=== PATIENT | female | born 1945 | race Caucasian/White ===

== ENCOUNTER 2021-11-03 13:30 | Outpatient (RCR) | payer MEDICARE, BC, SELFPAY | END 2022-11-03 23:59 | disposition home or self-care (01) | PROVIDERS: PCP Family Medicine | DX: I63.9 Cerebral infarction, unspecified (principal); Z51.89 Encounter for other specified aftercare | CPT/HCPCS: 97535 ==

== ENCOUNTER 2022-10-03 09:39 | Outpatient (CLI) | payer MEDICARE, BC, SELFPAY | END 2022-10-03 09:40 | disposition home or self-care (01) | PROVIDERS: PCP Family Medicine; Visit Provider Orthopaedic Surgery | DX: Z01.818 Encounter for other preprocedural examination (principal) | CPT/HCPCS: 36415; 86850; 86900; 86901 ==

== ENCOUNTER 2022-10-04 06:54 | Day surgery (SDC) | payer MEDICARE, BC, SELFPAY ==
[2022-10-04] VITALS (21 sets, daily range): BP systolic 103–160; BP diastolic 65–98; PULSE 56–84; RESP 14–18; TEMP 35.6–36.6; O2SAT 94–100; BMI 30.2
[2022-10-04] MEDS: LACTATED RINGERS 1000 ML 1,000 ML 100 ML IV ×2 (06:55→11:05)
[2022-10-04] MEDS: OXYCODONE (CR) 10 MG TAB.ER.12H PO (06:56)
[2022-10-04] MEDS: SODIUM CHLORIDE 0.9 % (FLUSH) 10 ML SYRINGE IVF (07:38)
--- NOTE | 2022-10-04 08:49 | SUR.PREOP ---
TIME?OUT:?0908 PT/RN/MDA?VERIFICATION?OF?SURGICAL?SITE Right Hip,?PROCEDURE,?AND?CONSENT OBTAINED?PRIOR?TO?INVASIVE?PROCEDURE Nerve Block.
--- NOTE | 2022-10-04 09:00 | CRLHL7_ITS ---
For Patients: As a result of the Cures Act, medical imaging exams and procedure reports are released immediately into your electronic medical record. You may view this report before your referring provider. If you have questions, please contact your health care provider. INDICATION: Right hip arthroplasty. TECHNIQUE: Fluoroscopically guided intraoperative right hip arthroplasty. Two portable intraoperative images obtained. FINDINGS: Right hip arthroplasty. Adequate alignment. 71 seconds fluoroscopy time utilized. IMPRESSION: 71 seconds fluoroscopy time utilized intraoperatively. Dictated by Enrique Lorenzo MD @ 10/04/2022 4:50:51 PM (Electronically Signed)
[2022-10-04] MEDS: fentaNYL 100 MCG/2 ML inj IVP (09:10)
[2022-10-04] MEDS: MIDAZOLAM HCL 1 MG/ML inj IVP (09:10)
[2022-10-04] MEDS: TRANEXAMIC ACID 100 MG/ML INJ 1000 MG IV (09:35)
[2022-10-04] MEDS: CEFAZOLIN 2 GM INJ IVP (09:40)
--- NOTE | 2022-10-04 10:55 | P.NB_ITS ---
Nerve Block Nerve Block Time Seen by Provider: 09:00 Date Seen: 10/04/22 Type of block requested by surgeon for post-operative analgesia: SEBAS/LFCN Side: right Time out performed: Yes Verification of patient name: Yes Verification of date of : Yes Site marking: site marked Name of person performing procedure: [place] Continuous monitoring Was continuous monitoring of O2 sat, B/P, parking lot attendant and cashier, recorded every 15 minutes?: Yes Procedure Checklist: sterile prep, needles and gloves Ultrasound guided. Images saved: Yes Medications given in 5ml increments after negative aspiration: Marcaine %: 0.5 mL: 30 Needle gauge: 20 Decadron (mg): 10 Precedex (mcg): 20 Patient tolerated procedure well: Yes Block Charges Block Charge (with Pro Fee): Other Periph Nerve Block Use of Ultrasound Machine for Block: Yes- US Guidance/pain block
--- NOTE | 2022-10-04 11:00 | CRLHL7_ITS ---
For Patients: As a result of the Cures Act, medical imaging exams and procedure reports are released immediately into your electronic medical record. You may view this report before your referring provider. If you have questions, please contact your health care provider. INDICATION: Follow up right hip arthroplasty. TECHNIQUE: AP pelvis and single cross table lateral view of the right hip performed portably and postoperatively. FINDINGS: Right hip arthroplasty. The components are adequately aligned and well seated. Air within the soft tissues related to the surgery. Degenerative arthritis of the left hip. IMPRESSION: Right total hip arthroplasty. The components are adequately aligned and well seated. Dictated by Enrique Lorenzo MD @ 10/04/2022 4:49:25 PM (Electronically Signed)
--- NOTE | 2022-10-04 11:02 | PM.ORPRC ---
Procedure Note Date of procedure: 10/04/22 Procedure: PREOPERATIVE DIAGNOSIS: Right hip osteoarthritis POSTOPERATIVE DIAGNOSIS: Right hip osteoarthritis NAME OF OPERATION: Right total hip arthroplasty SURGEON: Nayan Sidhu MD DIRECTOR VOICE: Ambika Floyd PA-C, MATEO Phillip IMPLANTS: 1. [employer] [place] # 54 sector ingrowth cup 2. 36 x 54 +4 neutral polyethylene 3. Actis #4 standard collared ingrowth stem 4. 36 + 8.5 ceramic femoral head ANESTHESIA: General ESTIMATED BLOOD LOSS: 500 cc COMPLICATIONS: None SPECIMENS: None DRAINS: None PREOPERATIVE ANTIBIOTICS: Ancef 2 grams INDICATIONS: The patient is a 77-year-old with a longstanding history of severe, unrelenting right hip pain secondary to end-stage right hip osteoarthritis. Despite appropriate nonoperative management, including activity modification, use of an assist device, anti-inflammatories, [id number] pain medication, physical therapy and injections, they continue to have pain and disability. Operative intervention was offered. The risks, benefits and expected outcomes were discussed in detail. These included but were not limited to: Infection, bleeding, injury to blood vessel or nerve, venous thromboembolism. All questions were answered to their satisfaction. Use of an college sports assistant was necessary throughout the case for patient positioning and safety, soft tissue retraction and closure. PROCEDURE: The patient was placed supine on the [place] table. General anesthesia was administered. The college sports assistant made sure the patient was properly positioned. The right hip was prepped and draped in the usual sterile fashion. The image intensifier was brought in for a perfect AP pelvis and a perfect double tear drop AP view of each hip which were used for intraoperative templating with our fluoroscopic guide. An oblique incision was made 3 cm distal and 3 cm lateral to the anterior superior iliac spine. The college sports assistant retracted the soft tissues to protect them. Subcutaneous dissection was taken with electrocautery to the superficial fascia. The fascia was divided in line with the incision. Blunt dissection was carried medially to the tensor fascia gladis and sartorius interval. Deep dissection was carried with electrocautery. The circumflex vessels were cauterized and divided. The capsule was exposed and then divided in a T-fashion, tagged with #1 Ethibond sutures. Retractors were placed in the joint, held by the college sports assistant. The corkscrew was placed in the femoral head. The neck cut was made in the subcapital region. We made a second neck cut more distal. The napkin ring of bone was removed. The femoral head was removed intact. Acetabular retractors were placed, held by the college sports assistant. The labrum was sharply debrided. The capsule was released. The 43 mm reamer was used to the true medial wall. We then enlarged in 2 mm increments using the image intensifier for our reamer placement. We impacted the cup which had excellent purchase. We placed the hole eliminator and the polyethylene. Attention was then turned to the proximal femur. The limb was placed in 140 degrees of external rotation, maximum extension and adduction. A significant amount of time was spent releasing the capsule to allow us to deliver the femur into the wound and complete the femoral side safely. Retractors were held by the college sports assistant throughout the femoral preparation. The coin box inspector and canal finder were used. Broaches were used to a stable size. The calcar reamer was used. Trial components were placed. The hip was reduced and was found to be stable with appropriate soft tissue tension. Length and offset had been nicely restored using the image intensifier and our fluoroscopic guide. Trial components were removed. The stem was impacted. We placed the femoral head. Again, the hip was reduced and was found to be stable with appropriate soft tissue tension. Length and offset had been nicely restored. The college sports assistant did a three minute dilute Betadine solution soak. The college sports assistant irrigated the wound with 3 liters of normal saline via pulse lavage. The college sports assistant repaired the anterior capsule with a #1 Vicryl and our previously placed Ethibond sutures. The college sports assistant closed the fascia over the tensor fascia gladis with a #1 PDO Stratafix, subcutaneous tissues with 2-0 Vicryl, skin with a running 3-0 Stratafix and glue. A dry dressing was applied by the college sports assistant. Sponge and needle counts were correct x 2. The patient tolerated the procedure well; there were no apparent complications. They were awakened and extubated in the operating room, sent to the Post-Anesthesia Care Unit in satisfactory condition. PLAN: 1. The patient will be mobilized with physical therapy, weight-bearing as tolerates 2. The patient's usual dose of Plavix can be restarted tomorrow for DVT prophylaxis 3. The patient will be discharged once medically appropriate
--- NOTE | 2022-10-04 11:59 | W.ANESCHARGE ---
Anesthesia Charges Start Date/Time Anesthesia Start Date: 10/04/22 Anesthesia Start Time: 09:24 Stop Date/Time Anesthesia Stop Date: 10/04/22 Anesthesia Stop Time: 11:56
[2022-10-04] MEDS: OXYCODONE 5 MG TABLET PO ×4 (13:56→21:36)
[2022-10-04] MEDS: CEFAZOLIN 2 GM in 0.9 % SODIUM CHLORIDE Mini-bag 100 ML IVPB ×2 (14:21→21:36)
[2022-10-04] MEDS: LACTATED RINGERS 1000 ML 1,000 ML 75 ML IV (15:57)
--- NOTE | 2022-10-04 16:42 | PC.NURSE ---
Pt arrived in her hospital bed s/p Right total hip anterior approach with Dr. Sidhu from PACU to room 249 at 1234pm. Initial assessment from PACU completed, pt noted to have a heart murmur, friend Jasmine is present at bedside performing healing touch on pt who rates her hip pain 2-3 out of 10. Pt is smiling, cooperative with cares, I'm relieved it is all over. Active ice in place. Bilateral knee high teds and foot plexipulses. Knee lock and bed alarm engaged. Pt declined offer of lunch tray. Incontinent of urine in her bed. Pt to recliner with Coty in PT, while linens changed. Pt took 5 mg PO oxycodone for post op pain from Connie FERNÁNDEZ. First dose of IV Ancef infusing. Report to Vanessa FERNÁNDEZ for evening shift.
[2022-10-04] MEDS: SENNOSIDES 1 TAB TABLET 2 TAB PO (21:36)
--- NOTE | 2022-10-04 22:37 | PM.IMCN1 ---
Date of Consult Patient: Roberta Patient Consult date: 10/04/22 Requesting Physician: Orthopedics Primary Care Provider: Opal Estes MD Consult Narrative Reason for consult: Postop support hypertrophic cardiomyopathy, HTN, HLD, h/o CVA, asthma Narrative: Joan Wren is a 77 year old woman with longstanding right Krishnamurthy arthrosis who underwent an elective right total hip arthroplasty today. Multiple other modalities attempted to treat this without success. Surgery undertaken successfully without any apparent immediate complications. Estimated blood loss 500 mL. Review of Systems Status of ROS: Reports: 10 or more systems reviewed and unremarkable except as noted in History and below Narrative: Status post bilateral total knee arthroplasties, 1 in 2001 in the other in 2005. One of these was associated with a deep venous thrombosis. Known hypertrophic cardiomyopathy. Follows with the [place] [facility] for this. Most recent echo reportedly demonstrated severely increased left ventricular wall thickness, EF 70 75%. Participates in physical thigh therapy exercises without difficulties. Able to walk 1-2 city blocks without having to stop and rest. Able to climb 1-2 flights of stairs ?carefully. ? Denies chest heaviness, pressure, tightness, or pain. Denies paroxysmal nocturnal dyspnea orthopnea. Rarely uses rescue albuterol inhaler. Maybe once a month at most. No recent fevers, rigors, diaphoresis. No recent physical illnesses. No weight gain or weight loss. No syncope or near syncope. Denies nausea or vomiting. Denies palpitations or fluttering. No recent trauma, injury, or travel. [facility] Medical History Aspirin-induced asthma ?J45.998 - Other asthma (ICD-10) ?T39.015A - Adverse effect of aspirin, initial encounter (ICD-10) Benign paroxysmal positional vertigo ?H81.10 - Benign paroxysmal vertigo, unspecified ear (ICD-10) Diaphragmatic hernia without obstruction and without gangrene ?K44.9 - Diaphragmatic hernia without obstruction or gangrene (ICD-10) Left ventricular outflow tract obstruction ?Q24.8 - Other specified congenital malformations of heart (ICD-10) CVA (cerebrovascular accident) ?I63.9 - Cerebral infarction, unspecified (ICD-10) Hypertrophic cardiomyopathy ?I42.2 - Other hypertrophic cardiomyopathy (ICD-10) long term care phlebotomist (current) use of anticoagulants ?Z79.01 - long term care phlebotomist (current) use of anticoagulants (ICD-10) Phlebitis ?I80.9 - Phlebitis and thrombophlebitis of unspecified site (ICD-10) 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 mesenteritis (ICD-10) Asthma, mild persistent ?J45.30 - Mild persistent asthma, uncomplicated (ICD-10) Mild pulmonary hypertension (07/10/17) ?I27.20 - Pulmonary hypertension, unspecified (ICD-10) Hyperlipidemia (10/27/09) ?E78.5 - Hyperlipidemia, unspecified (ICD-10) DVT (deep venous thrombosis) ?I82.409 - Acute embolism and thrombosis of unspecified deep veins of unspecified lower extremity (ICD-10) Surgical History Status post vaginal hysterectomy (03/27/12) ?Z90.710 - Acquired absence of both cervix and uterus (ICD-10) H/O vein stripping ?Z98.890 - Other specified postprocedural states (ICD-10) Status post total right knee replacement (03/20/02) ?Z96.651 - Presence of right artificial knee joint (ICD-10) History of carpal tunnel surgery of right wrist (10/19/05) ?Z98.890 - Other specified postprocedural states (ICD-10) Status post total left knee replacement using cement (08/23/11) ?Z96.652 - Presence of left artificial knee joint (ICD-10) History of carpal tunnel surgery of left wrist (04/29/21) ?Z98.890 - Other specified postprocedural states (ICD-10) Social History Narrative: -Adria What is your current living situation: I presently have a place to live Problems where you live: no known problems Problems where you live details: none In the past 12 months, utilities in danger of being shut off: no In the past 12 mos, have been you worried that your food would run out before you had money to buy more?: never true In the past 12 mos, the food you bought just didn't last and you didn't have money to buy more?: never true Smoking Status: Never smoker Do you use any of these nicotine containing products: None Second hand tobacco smoke exposure: No How often do you have a drink containing alcohol: never AUDIT-C Alcohol total score: 0 Non-prescribed substance use: denies use Caffeine: Yes (coffee 3 cups/day. once and a while a cup of tea) Are you now , , , , never or living with a partner: Social isolation score (0-1 are the most socially isolated patients): 1 How often does anyone, including family, friends and others, physically hurt you: How often does anyone, including family, friends and others, insult or talk down to you: How often does anyone, including family, friends and others, threaten you with harm: How often does anyone, including family, friends and others, scream or curse at you: Are you using contraception or practicing any form of control: No service: No Meds Home Medications and Allergies Home Medications Medication Instructions Recorded Confirmed Type clopidogrel 75 mg tablet 75 mg PO DAILY 09/14/22 10/04/22 History lisinopril 2.5 mg tablet 2.5 mg PO DAILY 09/14/22 10/04/22 History rosuvastatin 20 mg tablet 20 mg PO QPM 09/14/22 10/04/22 History Allergies Allergy/AdvReac Type Severity Reaction Status Date / Time aspirin Allergy Severe asthma Verified 10/04/22 07:24 attack azithromycin Allergy Severe GI upset Verified 10/04/22 07:24 acetaminophen Allergy Mild very upset Verified 10/04/22 07:24 stomach ketorolac Allergy Mild possible Verified 10/04/22 07:24 cross allergy latex Allergy Mild Rash Verified 10/04/22 07:24 colchicine Allergy Unknown upset Verified 10/04/22 07:24 stomach hydroxyzine Allergy Unknown Verified 10/04/22 07:24 indomethacin Allergy Unknown stomach Verified 10/04/22 07:24 upset Penicillins AdvReac Intermediate asthma Verified 10/04/22 07:24 flare Exam Narrative: Exam Narrative: Appears comfortable and in no acute distress. Vision and hearing are grossly normal. Alert, oriented to self, place, time, situation. Friendly, cooperative, articulate. Mood and affect are congruent. No JVD or hepatojugular reflux. No carotid bruits. Lungs are clear to auscultation without wheezing, rhonchi, or rales. Heart tones with regular rhythm, normal S1-S2. Grade 2/6 systolic murmur, longstanding. Abdomen with active bowel sounds, soft, nontender. Skin is dry and intact. I do not take the dressing off surgical incision sites. Const: Vital Signs, click to edit/add: Vital Signs - 24 hr 10/04/22 07:31 10/04/22 09:00 10/04/22 09:10 Temperature 97.9 F 97.9 F Pulse Rate 63 70 65 Pulse Rate [Right Pulse Oximeter] Respiratory Rate 16 16 16 Blood Pressure 148/81 H 152/80 H 148/70 H Blood Pressure [Le ft Arm] Pulse Oximetry 95 100 100 Oxygen Delivery Me thod Room Air Nasal Cannula Nasal Cannula Oxygen Flow Rate 2 2 10/04/22 09:15 10/04/22 11:53 10/04/22 12:00 Temperature 97.0 F L Pulse Rate 63 74 66 Pulse Rate [Right Pulse Oximeter] Respiratory Rate 16 14 14 Blood Pressure 132/83 160/76 H 152/83 H Blood Pressure [Le ft Arm] Pulse Oximetry 100 94 95 Oxygen Delivery Me thod Nasal Cannula Nasal Cannula Aerosol Mask Oxygen Flow Rate 2 8 10/04/22 12:06 10/04/22 12:15 10/04/22 12:30 Temperature 97.4 F L 97.8 F Pulse Rate 84 75 78 Pulse Rate [Right Pulse Oximeter] Respiratory Rate 14 16 16 Blood Pressure 126/98 H 153/85 H 159/79 H Blood Pressure [Le ft Arm] Pulse Oximetry 99 99 99 Oxygen Delivery Me thod Aerosol Mask Nasal Cannula Nasal Cannula Oxygen Flow Rate 8 2 2 10/04/22 12:36 10/04/22 12:45 10/04/22 13:00 Temperature 96.1 F L 96.1 F L Pulse Rate 62 Pulse Rate [Right Pulse Oximeter] 60 56 L Respiratory Rate 16 16 16 Blood Pressure Blood Pressure [Le ft Arm] 111/67 117/72 141/80 H Pulse Oximetry 97 100 Oxygen Delivery Me thod Room Air Room Air Room Air Oxygen Flow Rate 10/04/22 13:15 10/04/22 13:30 10/04/22 14:00 Temperature Pulse Rate Pulse Rate [Right Pulse Oximeter] 59 L 61 68 Respiratory Rate 16 16 16 Blood Pressure Blood Pressure [Le ft Arm] 143/69 H 140/75 H 108/83 Pulse Oximetry 95 99 Oxygen Delivery Me thod Room Air Room Air Room Air Oxygen Flow Rate 10/04/22 14:30 10/04/22 15:00 10/04/22 16:00 Temperature 96.8 F L 97.3 F L 97.1 F L Pulse Rate Pulse Rate [Right Pulse Oximeter] 69 69 68 Respiratory Rate 16 16 16 Blood Pressure Blood Pressure [Le ft Arm] 118/86 110/73 151/89 H Pulse Oximetry 94 94 94 Oxygen Delivery Me thod Room Air Room Air Room Air Oxygen Flow Rate 10/04/22 17:00 10/04/22 18:00 Temperature 97.1 F L Pulse Rate Pulse Rate [Right Pulse Oximeter] 68 68 Respiratory Rate 16 16 Blood Pressure Blood Pressure [Le ft Arm] 129/70 118/89 Pulse Oximetry 94 94 Oxygen Delivery Me thod Room Air Room Air Oxygen Flow Rate 2 Documenting provider has reviewed patient's vital signs: yes Assessment and Plan Assessment and plan (1) Osteoarthritis of right hip: Status: Acute (2) Status post right hip replacement: Status: Acute (3) Hypertrophic cardiomyopathy: Status: Acute (4) Nonrheumatic tricuspid valve regurgitation: Status: Acute (5) Left ventricular hypertrophy: Status: Acute (6) Left ventricular outflow tract obstruction: Status: Acute (7) Mild pulmonary hypertension: Status: Acute (8) Hyperlipidemia: Status: Acute (9) CVA (cerebrovascular accident): Problem comment: 08/2021 Rt occipital Status: Acute (10) DVT (deep venous thrombosis): Problem comment: Occurred in postoperative setting status post total knee arthroplasty in the past. Status: Acute (11) Aspirin-induced asthma: Status: Acute Plan 1. Reviewed impression with patient. 2. Agree with perioperative IV antibiotic prophylaxis. 3. Will need postoperative anticoagulation with rivaroxaban for 30 days before continuing with the clopidogrel that she is on for long-term risks reduction for stroke. Has known history of deep venous thrombosis after 1 of her total knee arthroplasties. Not a candidate for aspirin given history of aspirin induced reactive airways in the past. 4. Continue with other supportive medications including albuterol, lisinopril, rosuvastatin. 5. Answered patient's questions are satisfaction. She is agreeable. 6. Will follow with Orthopedic surgery while patient is in the hospital.
--- NOTE | 2022-10-05 01:44 | PM.IMPN1 ---
Progress Note: A&P Assessment and plan (1) Status post right hip replacement: Status: Acute Plan Patient is s/p R. ROMEL. Vitals stable. Patient has pruritus, no rash. Patient is requesting Benadryl. One time oral dose ordered. Patient has Hydroxyzine unknown allergy and some cross reactivity with Benadryl. Nursing is confirming patient has taken Benadryl in past without issues. Subjective Date Seen: 10/05/22 Exam Const: Vital Signs, click to edit/add: Vital Signs - 24 hr 10/04/22 07:31 10/04/22 09:00 10/04/22 09:10 Temperature 97.9 F 97.9 F Pulse Rate 63 70 65 Pulse Rate [Right Pulse Oximeter] Respiratory Rate 16 16 16 Blood Pressure 148/81 H 152/80 H 148/70 H Blood Pressure [Le ft Arm] Pulse Oximetry 95 100 100 Oxygen Delivery Me thod Room Air Nasal Cannula Nasal Cannula Oxygen Flow Rate 2 2 10/04/22 09:15 10/04/22 11:53 10/04/22 12:00 Temperature 97.0 F L Pulse Rate 63 74 66 Pulse Rate [Right Pulse Oximeter] Respiratory Rate 16 14 14 Blood Pressure 132/83 160/76 H 152/83 H Blood Pressure [Le ft Arm] Pulse Oximetry 100 94 95 Oxygen Delivery Me thod Nasal Cannula Nasal Cannula Aerosol Mask Oxygen Flow Rate 2 8 10/04/22 12:06 10/04/22 12:15 10/04/22 12:30 Temperature 97.4 F L 97.8 F Pulse Rate 84 75 78 Pulse Rate [Right Pulse Oximeter] Respiratory Rate 14 16 16 Blood Pressure 126/98 H 153/85 H 159/79 H Blood Pressure [Le ft Arm] Pulse Oximetry 99 99 99 Oxygen Delivery Me thod Aerosol Mask Nasal Cannula Nasal Cannula Oxygen Flow Rate 8 2 2 10/04/22 12:36 10/04/22 12:45 10/04/22 13:00 Temperature 96.1 F L 96.1 F L Pulse Rate 62 Pulse Rate [Right Pulse Oximeter] 60 56 L Respiratory Rate 16 16 16 Blood Pressure Blood Pressure [Le ft Arm] 111/67 117/72 141/80 H Pulse Oximetry 97 100 Oxygen Delivery Me thod Room Air Room Air Room Air Oxygen Flow Rate 10/04/22 13:15 10/04/22 13:30 10/04/22 14:00 Temperature Pulse Rate Pulse Rate [Right Pulse Oximeter] 59 L 61 68 Respiratory Rate 16 16 16 Blood Pressure Blood Pressure [Le ft Arm] 143/69 H 140/75 H 108/83 Pulse Oximetry 95 99 Oxygen Delivery Me thod Room Air Room Air Room Air Oxygen Flow Rate 10/04/22 14:30 10/04/22 15:00 10/04/22 16:00 Temperature 96.8 F L 97.3 F L 97.1 F L Pulse Rate Pulse Rate [Right Pulse Oximeter] 69 69 68 Respiratory Rate 16 16 16 Blood Pressure Blood Pressure [Le ft Arm] 118/86 110/73 151/89 H Pulse Oximetry 94 94 94 Oxygen Delivery Me thod Room Air Room Air Room Air Oxygen Flow Rate 10/04/22 17:00 10/04/22 18:00 Temperature 97.1 F L Pulse Rate Pulse Rate [Right Pulse Oximeter] 68 68 Respiratory Rate 16 16 Blood Pressure Blood Pressure [Le ft Arm] 129/70 118/89 Pulse Oximetry 94 94 Oxygen Delivery Me thod Room Air Room Air Oxygen Flow Rate 2
[2022-10-05 03:00] VITALS: BP 116/54; PULSE 68; RESP 18; TEMP 36.7; O2SAT 98
[2022-10-05] MEDS: OXYCODONE 5 MG TABLET PO ×3 (03:38→11:40)
[2022-10-05] MEDS: LORATADINE 10 MG TABLET PO (03:39)
[2022-10-05 07:02] LABS: Basophils Absolute Auto 0.01 K/uL (0.00-0.30); Basophils Percent Auto 0.1 % (0.0-3.0); Hematocrit 29.3 % (33.0-51.0); Hemoglobin* 9.4 gm/dL (12.0-16.0); Immature Granulocytes Abs Auto 0.05 K/uL (0.00-0.30); Immature Granulocytes Pct Auto 0.6 %; Lymphocytes Percent Auto 15.1 % (20-44); Mean Corpuscular HGB Conc 32 gm/dL (32-36); Mean Corpuscular Hemoglobin 30 pg (26-34); Mean Corpuscular Volume 93 fL (80-100); Monocytes Percent Auto 9.6 % (0.0-11.0); Neutrophils Percent Auto 74.6 % (42.0-72.0); Platelet Count* 200 K/uL (140-440); RDW Coefficient of Variation % 13.8 % (11.5-15.5); Red Blood Count 3.16 m/uL (4.00-5.20); White Blood Count* 8.77 K/uL (4.50-11.00)
[2022-10-05 07:11] LABS: Slide Review Reflex No
[2022-10-05 07:22] LABS: Potassium* 4.7 mmol/L (3.6-5.1); Sodium* 136 mmol/L (135-149)
[2022-10-05 07:25] LABS: Creatinine* 0.7 mg/dL (0.5-1.5); Est. Creatinine Clearance* 41.05; Estimated Glomerular Filt Rate 88 ml/min
[2022-10-05 07:26] LABS: Blood Urea Nitrogen* 11 mg/dL (7-30)
[2022-10-05 07:45] VITALS: BP 129/67; PULSE 81; RESP 18; TEMP 36.4; O2SAT 97
--- NOTE | 2022-10-05 08:02 | PC.NURSE ---
END OF SHIFT NOTE: PT PLEASANT AND COOPERATIVE WITH CARES. PT DENIES CP, SOB, N/V. AMBULATES WITH WALKER, GB, SBA. VSS ON RA; AFEBRILE. ACTIVE ICE TO RIGHT HIP. AFTER BLOCK WORE OFF PT RATED HIP PAIN 7/10 WITH ACTIVITY. USING IS WELL. PT C/O ITCHING; GAYLA UPDATED ORDERED ONE TIME DOSE OF LORATADINE. PT STATED THIS HELPED. BED ALARM ON AND CALL LIGHT WITHIN PT?S REACH.?
--- NOTE | 2022-10-05 08:38 | PM.ORPN ---
Subjective Subjective Time Seen by Provider: 07:45 Date Seen: 10/05/22 Principal diagnosis: status post right hip replacement Interval history: Joan is comfortable this morning. She plans to discharge today to home. Ortho Exam Narrative Exam Narrative: Alert and oriented x3. Patient is in no acute distress. Converses without labored breathing. Hearing is grossly intact. Ambulates with a Walker. Examination of the right lower extremity shows the dressing is intact. No erythema or warmth or sign of infection. Mild thigh tenderness. Mild edema about the hip. Mild ecchymosis. Bilateral calves are soft and nontender. CMS is intact right lower extremity. Quad strength 5/5. Const Vital Signs, click to edit/add: Vital Signs - 24 hr 10/04/22 09:00 10/04/22 09:10 10/04/22 09:15 Temperature 97.9 F Pulse Rate 70 65 63 Pulse Rate [Right Pulse Oximeter] Respiratory Rate 16 16 16 Blood Pressure 152/80 H 148/70 H 132/83 Blood Pressure [Left Arm] Pulse Oximetry 100 100 100 Oxygen Delivery Method Nasal Cannula Nasal Cannula Nasal Cannula Oxygen Flow Rate 2 2 2 10/04/22 11:53 10/04/22 12:00 10/04/22 12:06 Temperature 97.0 F L 97.4 F L Pulse Rate 74 66 84 Pulse Rate [Right Pulse Oximeter] Respiratory Rate 14 14 14 Blood Pressure 160/76 H 152/83 H 126/98 H Blood Pressure [Left Arm] Pulse Oximetry 94 95 99 Oxygen Delivery Method Nasal Cannula Aerosol Mask Aerosol Mask Oxygen Flow Rate 8 8 10/04/22 12:15 10/04/22 12:30 10/04/22 12:36 Temperature 97.8 F 96.1 F L Pulse Rate 75 78 62 Pulse Rate [Right Pulse Oximeter] Respiratory Rate 16 16 16 Blood Pressure 153/85 H 159/79 H Blood Pressure [Left Arm] 111/67 Pulse Oximetry 99 99 Oxygen Delivery Method Nasal Cannula Nasal Cannula Room Air Oxygen Flow Rate 2 2 10/04/22 12:45 10/04/22 13:00 10/04/22 13:15 Temperature 96.1 F L Pulse Rate Pulse Rate [Right Pulse Oximeter] 60 56 L 59 L Respiratory Rate 16 16 16 Blood Pressure Blood Pressure [Left Arm] 117/72 141/80 H 143/69 H Pulse Oximetry 97 100 95 Oxygen Delivery Method Room Air Room Air Room Air Oxygen Flow Rate 10/04/22 13:30 10/04/22 14:00 10/04/22 14:30 Temperature 96.8 F L Pulse Rate Pulse Rate [Right Pulse Oximeter] 61 68 69 Respiratory Rate 16 16 16 Blood Pressure Blood Pressure [Left Arm] 140/75 H 108/83 118/86 Pulse Oximetry 99 94 Oxygen Delivery Method Room Air Room Air Room Air Oxygen Flow Rate 10/04/22 15:00 10/04/22 16:00 10/04/22 17:00 Temperature 97.3 F L 97.1 F L 97.1 F L Pulse Rate Pulse Rate [Right Pulse Oximeter] 69 68 68 Respiratory Rate 16 16 16 Blood Pressure Blood Pressure [Left Arm] 110/73 151/89 H 129/70 Pulse Oximetry 94 94 94 Oxygen Delivery Method Room Air Room Air Room Air Oxygen Flow Rate 2 10/04/22 18:00 10/04/22 23:00 10/04/22 23:00 Temperature 97.8 F Pulse Rate Pulse Rate [Right Pulse Oximeter] 68 75 75 Respiratory Rate 16 18 18 Blood Pressure Blood Pressure [Left Arm] 118/89 103/65 Pulse Oximetry 94 95 Oxygen Delivery Method Room Air Room Air Oxygen Flow Rate 10/05/22 03:00 Temperature 98.0 F Pulse Rate Pulse Rate [Right Pulse Oximeter] 68 Respiratory Rate 18 Blood Pressure Blood Pressure [Left Arm] 116/54 L Pulse Oximetry 98 Oxygen Delivery Method Room Air Oxygen Flow Rate Assessment and Plan Assessment and plan (1) Status post right hip replacement: Status: Acute Plan Plan for discharge is today to home if they meet discharge criteria. DVT prophylaxis includes Xarelto 10 mg daily for total of 30 days, then Resume Plavix, Henry stockings x1 month may remove for 1 hr per day, frequent ambulation Remove dressing 1 week. Observe wound and phone Orthopedics with any questions or concerns Use Ice on operative hip unrestricted. Return to clinic in 1 week with PA for a wound check Return to clinic in [address] Sidhu Minimize narcotic use. Wean off and discontinue soon as possible. Activities as tolerated. No strenuous activity. Attend outpt PT
[2022-10-05] MEDS: lisinopriL 5 MG TABLET 2.5 MG PO (09:04)
[2022-10-05] MEDS: SENNOSIDES 1 TAB TABLET 2 TAB PO (09:04)
[2022-10-05] MEDS: RIVAROXABAN 10 MG TABLET PO (09:04)
[2022-10-05 09:38] VITALS: BP 159/79; PULSE 62; RESP 18; TEMP 36.7
--- NOTE | 2022-10-05 12:24 | PC.NURSE ---
End of shift. pt has been pleasant. pain was 0 this am and later it was 8/10. SL was patent and later it was d.i intact. teds are on and off. dressing is C/D/I and active ice is on. she is up with 1 assist walker and GB. she is a fall risk and alarms are on. went over discharge packet with pt. went over medications, appointment, education and instructions. pt was sent with 2 active ice packs. teds are on and off went over patients belongs list and signed it. she got a w/c to her car and was helped in to car.
--- NOTE | 2022-10-05 12:40 | PC.SOCIAL ---
Per therapy, pt is moving well. Pt has assistance at home from pt's spouse. No identified social work needs.
== END 2022-10-05 12:00 | disposition home or self-care (01) ==
LOC: OR 06:55 → MEDSURG 11:52
PROVIDERS: PCP Family Medicine; Visit Provider Orthopaedic Surgery
PROC: (CPT 27130; principal; 2022-10-04 09:00)
DX: M16.11 Unilateral primary osteoarthritis, right hip (principal); G89.18 Other acute postprocedural pain; I42.2 Other hypertrophic cardiomyopathy; I10 Essential (primary) hypertension; J45.909 Unspecified asthma, uncomplicated; I27.20 Pulmonary hypertension, unspecified; Z86.718 Personal history of other venous thrombosis and embolism; Z79.01 Long term (current) use of anticoagulants; Z86.73 Personal history of transient ischemic attack (TIA), and cerebral infarction without residual deficits
CPT/HCPCS: 27130; 01214; 36415; 64450; 73501; 76000; 76942; 82565; 84132; 84295; 84520; 85025; 97110; 97116; 97161; 97165; 97530; 97535; A9270; C1776; J0330; J0690; J1100; J1170; J2250; J2405; J2704; J2710; J3010; J3490; J7120

== ENCOUNTER 2022-11-10 13:00 | Outpatient (RCR) | payer MEDICARE, BC, SELFPAY ==
--- NOTE | 2022-09-15 16:01 | PT.OPEX ---
PT [place] Outpatient Eval PT [facility] Outpatient Eval Start: 09/15/22 12:53 Freq: Status: Active Protocol: Document 09/15/22 12:56 OWEN (Rec: 09/15/22 15:59 CHRISAGERTika [id number]) E-signed By Coty Gottlieb Physical Therapy Outpatient Evaluation Insurance Information Recert Due Date 12/22/22 Insurance Name Medicare B,Blue Cross/[employer] Medical Diagnosis M16.11 R hip OA Z96.641 Presence of R artificial hip joint Treating Diagnosis M25.551 R hip pain M25.651 R hip stiffness Referring MD Sidhu Subjective Subjective Pt presents pre-op RTHA on with Dr. Sidhu. Pt states that hip pain has been occurring for 6 months. Walking aggravates pain. Does not take medications but uses homeopathic remedies such as Boiron which helps. Does not want to take pain meds post-op . Uses SPC at baseline d/t pain. [facility] in [facility], 3 steps to enter B rails, walk in shower with grab bars, bath bench, raised toilet seat, SPC/standard walker at home. Spouse can assist if needed. Pain Comments 01/24 Date of Last Physician Visit 09/14/22 Date of Next Physician Visit 10/12/22 Date of Surgery (If applicable) 10/04/22 Current Work Status Retired Preferred Name Aga Precautions Treatment Precautions/Contraindications PMHx: DVT, B TKAs Weight Bearing Status Weight Bear as Tolerated Therapy Limitations/Systems Review Not Limited Objective Range of Motion Hip Flexion R/L: 100/115 Hip extension R/L: neutral Hip IR R/L: 32/15 Hip ER R/L: 33/40 Strength Hip Flexion R/L: 3+/3 Hip Abd R/L: 4/4 Hip Add R/L: 4/4 Hip IR R/L: 3/3- Hip ER R/L: 3-3- Quads R/L: 4-/3+ Hamstrings R/L: 4/4 Balance & Gait Antalgic gait pattern with dec WB RLE, requiring use of SPC Assessment Assessment/Impression Pt is a 77yo F pre-op RTHA on 10/04/[address] Sidhu. PMHx: DVT, B TKAs. Pt with R hip pain for the past 6 months. Has been using SPC d/t pain. Not interested in taking pain medications post-op. Pt demonstrates dec R hip ROM and strength as well as balance and gait deficits. Pt was educated on HEP, POC, cryotherapy, pain management strategies, fall prevention, equipment needs, and stair negotiation. Pt would continue to benefit from skilled PT services to address any post- op impairments. Primary Functional Limitations Pain with functional mobility Dec R hip strength and ROM Gait and balance deficits Plan of Care Rehabilitation Potential Good Physical Therapy Goals In 4-6 weeks: 1. Pt will demonstrate 30 degrees of hip extension as well as 110 degrees of hip flexion in order to achieve proper ROM for gait and stair negotiation. 2. Pt will display improved mechanics going up/down 13 stairs with a reciprocal pattern using 2 railings in order to safely get into house and 2nd floor of their home. 3. Pt will be independent with HEP to promote strength and decrease fall risk. 4. Pt will display improved left hip flex, hip ABD, quad and hamstring strength >4/5 in order to improve quality of gait without assistive device. 5. Pt will be able to stand for >15 minutes with B hip pain </= 2/10 in order to aid in meal preparation. Coordination/Communication With Referral Source Treatment Plan/Direct Interventions Gait Training,Joint Mobilization,Manual Therapy, Neuromuscular Re-ed,Self-Care/ Home Management,Therapeutic Activities,Therapeutic Exercises Frequency/Duration 1x/week for 4-6 weeks Patient Will Be Discharged From Therapy Completion of LTG(s),Skills Plateau,Independent w/HEP, Independently Progressing Evaluation Billing Untimed Code Treatment Minutes 15 PT Eval No Charge No Complexity Moderate Certification Information Initial Certification Date 09/15/22 Ending Certification Date 12/22/22 Provider Signature Shows Agreement With POC & Medical Necessity Physician Comment/Change : Physician NPI Number #
== END 2023-03-10 23:59 | disposition home or self-care (01) ==
PROVIDERS: PCP Family Medicine; Visit Provider Orthopaedic Surgery
DX: M16.11 Unilateral primary osteoarthritis, right hip (principal); Z96.641 Presence of right artificial hip joint; Z51.89 Encounter for other specified aftercare
CPT/HCPCS: 97110; 97140; 97162; 97164; 97535